=== PATIENT | male | born 1980 | race Caucasian/White ===

== ENCOUNTER → 2019-02-21 10:30 | Outpatient (CLI) | payer OTHER, SELFPAY ==
--- NOTE | 2019-02-21 10:33 | DI.RAD.S_ITS ---
PROCEDURE: XR SHOULDER RT MIN 2V INDICATIONS: Right shoulder pain. TECHNIQUE: 3 views of the shoulder were acquired. COMPARISON: None. FINDINGS: Bones: No fractures or dislocations. No suspicious bony lesions. Visualized ribs appear intact. Soft tissues: No suspicious soft tissue calcifications. IMPRESSION: No acute osseous abnormality of the right shoulder. Dictated by: Chris Skaggs M.D. on 02/21/2019 at 11:22 Approved by: hCris Skaggs M.D. on 02/21/2019 at 11:25
== END ==
PROVIDERS: Visit Provider Physician Assistant
DX: M25.511 Pain in right shoulder (principal)
CPT/HCPCS: 73030

== ENCOUNTER → 2019-04-14 09:11 | Outpatient (CLI) | payer OTHER, SELFPAY ==
--- NOTE | 2019-04-14 09:30 | DI.CT.S_ITS ---
PATIENT NAME: PETR RAMOS : 1980 EXAM DATE: 04/14/2019 9:31 ORD. : ANTHONY ULLOA PA-C CC: MODALITY: CT PATIENT TYPE: Out CONTRAST MEDIA: STATION ID: [id number] FLUORO TIME: PROCEDURE: CT UE RT WO CON INDICATIONS: RECURRENT DISLOCATION OF RIGHT SHOULDER TECHNIQUE: Noncontrast 1-1.5 mm thick sections acquired from the acromioclavicular joint to the inferior scapula, with coronal and sagittal reformatting. COMPARISON: [facility] Outside Film, MR, MR SHOULDER RIGHT ARTHROGRAM, 03/21/2019, 14:47. FINDINGS: Image quality: Excellent. 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 Post surgical changes noted related to prior labral repair. A Hill-Sachs deformity is noted. There is a 7 mm intra-articular body in the posterior inferior glenohumeral joint. Soft tissues: No soft tissue mass a large joint effusion. IMPRESSION: 1. 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 2. Hill-Sachs deformity of the humeral head. 3. A 7 mm intra-articular body in the posterior inferior glenohumeral joint. Dictated by: Faby Medrano M.D. on 04/14/2019 at 12:52 Transcribed by: JADA on 04/14/2019 at 16:02 Approved by: Faby Medrano M.D. on 04/15/2019 at 7:32
== END ==
DX: M24.411 Recurrent dislocation, right shoulder (principal); M24.011 Loose body in right shoulder
CPT/HCPCS: 73200

== ENCOUNTER → 2019-10-12 07:03 | Outpatient (CLI) | payer OTHER, SELFPAY ==
[2019-10-12 08:06] LABS: Add Manual Diff / Slide Review NO; Basophils Absolute Auto 0 /uL (0-100); Basophils Percent Auto 0.7 % (0-2); Eosinophils Absolute Auto 100 /uL (0-450); Eosinophils Percent Auto 2.1 % (2-4); Hematocrit 42.8 % (41-53); Lymphocytes Absolute Auto 1700 /uL (1100-4500); Lymphocytes Percent Auto 37.3 % (25-40); Mean Corpuscular Hemoglobin 32.1 PG (26-34); Mean Corpuscular Volume 91.9 fL (80-100); Monocytes Absolute Auto 300 /uL (0-900); Monocytes Percent Auto 7.1 % (3-14); Neutrophils Absolute Auto 2500 /uL (1500-7000); Neutrophils Percent Auto 52.8 % (50-75); Platelet Count 158 X10^3/uL (150-400); Red Blood Cell Count 4.66 X10^6/uL (4.5-5.9); Red Cell Distribution Width 12.9 % (11.6-14.8); White Blood Cell Count 4.7 X10^3/uL (4.5-11.0)
[2019-10-12 09:03] LABS: Alanine Aminotransferase 15 IU/L (<50); Albumin 4.5 g/dL (3.5-5.0); Albumin Globulin Ratio 1.9 (1.0-2.8); Alkaline Phosphatase 85 U/L (38-126); Aspartate Aminotransferase 21 IU/L (17-59); Bilirubin Total 1.1 mg/dL (0.2-1.3); Blood Urea Nitrogen 21 mg/dL (9-20); Calcium 9.5 mg/dL (8.4-10.2); Carbon Dioxide 28 mmol/L (22-32); Chloride 103 mmol/L (98-107); Cholesterol 177 mg/dL (140-199); Estimated Glomerular Filt Rate > 60.0 mL/min (>60); Globulin 2.4 g/dL (1.7-4.1); Glucose 92 mg/dL (70-100); HDL Cholesterol 44 mg/dL (40-60); HEMOLYSIS < 15 (0-50); LDL Cholesterol Calculated 116 mg/dL (<100); Potassium 3.8 mmol/L (3.4-5.1); Sodium 141 mmol/L (137-145); Total Protein 6.9 g/dL (6.3-8.2); Triglycerides 83 mg/dL (35-150)
[2019-10-12 09:16] LABS: Free T3, Triiodothyronine Free 3.84 pg/mL (2.77-5.27); Free T4, Direct Thyroxine 1.15 ng/dL (0.78-2.19)
[2019-10-12 09:30] LABS: Thyroid Stimulating Hormone 2.06 uIU/mL (0.47-4.68)
== END ==
PROVIDERS: Visit Provider Nurse Practitioner
DX: Z13.220 Encounter for screening for lipoid disorders (principal); Z13.29 Encounter for screening for other suspected endocrine disorder; F43.9 Reaction to severe stress, unspecified; R45.4 Irritability and anger; R45.86 Emotional lability; R53.83 Other fatigue; E78.00 Pure hypercholesterolemia, unspecified; R68.82 Decreased libido; R03.0 Elevated blood-pressure reading, without diagnosis of hypertension
CPT/HCPCS: 36415; 80053; 80061; 82533; 84403; 84439; 84443; 84481; 85025

== ENCOUNTER → 2019-11-09 09:55 | Outpatient (CLI) | payer OTHER, SELFPAY ==
--- NOTE | 2019-11-09 10:06 | DIET.PN ---
Dietary Progress Note Assessment: 39y M c HLD and obesity wanting to start a plant-based diet to lose weight and regulate his cholesterol. Pt has hx of [employer] dieting, recently went one week plant based and wants to try this diet [facility]. Pt interested in eating meat/dairy once or twice per month which will be good idea to get needed B12, iron, and other nutrients in food form vs. supplementing. Pt tends to eat the same recipes repeatedly. HT: 6'1 WT: 230# UBW: 1.5y ago 310#, wt goal:205# may want to break 190# Followed plant based diet for a week in October, enjoyed it, wants to be flexible diet but mostly plant based. wakes 7am B: almond yogurt c berries and granola, coffee working on finding creamer L: zucchini, yellow squash, tomato sauce, lentils, kale, valle peppers, tri color spiral noodles D: similar to lunch but maybe on getachew bread, or yolanda cheesesteak using mushrooms on getachew Loves fried foods PA: runs 2-4d/w runs for hour keeping heart rate <150, circuit training 2d/w, stairmaster Labs: LDL 114 Nutrition Diagnosis: nutrition related knowledge deficit r/t healthy ways to manage weight and cholesterol levels aeb pt past diet high in fatty meats and fried foods, elevated LDL, highest wt 310#. Interventions: 1. Discussed motivation for health change and doing so with plant-based diet. 2. Discussed essential components to complete vegan diet including PRO, zinc, iron, B12 and sources of each. 3. Discussed processed vegan diet vs whole foods based one, to stick with foods he can identify in their whole form. 4. Discussed importance of healthy fats (olive and avocado, nuts, seeds) to support hormone production. 4. Discussed role of physical activity in increasing HDL and losing weight. 5. Pt will use [email or web address] to find one new recipe per week to add variety to his current routine. 6. Pt will include resistance training and massage to continue rehabbing his shoulder to avoid reinjury. EER: 2,000kcal, 90g PRO (1g/kg) Monitoring/Evaluations: Recc f/u c RD in 3 mo to assess progress, recc pt have B12 checked and labs redrawn in 6mo
== END ==
PROVIDERS: Visit Provider Nurse Practitioner
DX: E78.5 Hyperlipidemia, unspecified (principal); E66.9 Obesity, unspecified; Z71.3 Dietary counseling and surveillance
CPT/HCPCS: 97802

== ENCOUNTER → 2020-09-26 07:07 | Outpatient (CLI) | payer OTHER, SELFPAY ==
[2020-09-26 07:53] LABS: Add Manual Diff / Slide Review NO; Basophils Absolute Auto 0 /uL (0-100); Basophils Percent Auto 0.7 % (0-2); Eosinophils Absolute Auto 100 /uL (0-450); Eosinophils Percent Auto 1.9 % (2-4); Hematocrit 42.8 % (41-53); Hemoglobin 15.1 g/dL (13.5-17.5); Lymphocytes Absolute Auto 1400 /uL (1100-4500); Lymphocytes Percent Auto 35.1 % (25-40); Mean Corpuscular HGB Conc 35.3 % (30-36); Mean Corpuscular Volume 90.8 fL (80-100); Monocytes Absolute Auto 200 /uL (0-900); Neutrophils Absolute Auto 2200 /uL (1500-7000); Neutrophils Percent Auto 56.3 % (50-75); Platelet Count 144 X10^3/uL (150-400); Red Blood Cell Count 4.71 X10^6/uL (4.5-5.9); Red Cell Distribution Width 12.6 % (11.6-14.8); White Blood Cell Count 3.9 X10^3/uL (4.5-11.0)
[2020-09-26 08:18] LABS: Alanine Aminotransferase 24 IU/L (<50); Albumin 4.5 g/dL (3.5-5.0); Albumin Globulin Ratio 1.6 (1.0-2.8); Alkaline Phosphatase 76 U/L (38-126); Aspartate Aminotransferase 24 IU/L (17-59); BUN Creatinine Ratio 26.8 (6-22); Bilirubin Total 1.1 mg/dL (0.2-1.3); Blood Urea Nitrogen 22 mg/dL (9-20); Calcium 9.6 mg/dL (8.4-10.2); Carbon Dioxide 28 mmol/L (22-32); Chloride 105 mmol/L (98-107); Cholesterol 174 mg/dL (140-199); Estimated Glomerular Filt Rate > 60.0 mL/min (>60); Globulin 2.9 g/dL (1.7-4.1); Glucose 99 mg/dL (70-100); HDL Cholesterol 43 mg/dL (40-60); HEMOLYSIS < 15 (0-50); LDL Cholesterol Calculated 107 mg/dL (<100); Potassium 4.2 mmol/L (3.4-5.1); Sodium 139 mmol/L (137-145); Total Protein 7.4 g/dL (6.3-8.2); Triglycerides 121 mg/dL (35-150)
[2020-09-26 08:36] LABS: Free T3, Triiodothyronine Free 3.31 pg/mL (2.77-5.27)
[2020-09-26 08:50] LABS: Thyroid Stimulating Hormone 2.13 uIU/mL (0.47-4.68)
[2020-09-26 08:51] LABS: Testosterone 442 ng/dL (132-813)
== END ==
PROVIDERS: PCP Nurse Practitioner; Referring Provider Nurse Practitioner; Visit Provider Nurse Practitioner
DX: E66.9 Obesity, unspecified (principal); E78.5 Hyperlipidemia, unspecified; Z12.5 Encounter for screening for malignant neoplasm of prostate
CPT/HCPCS: 36415; 80053; 80061; 84403; 84439; 84443; 84481; 85025; G0103